=== PATIENT | female | born 1950 | race Caucasian/White ===

== ENCOUNTER → 2016-12-21 | Outpatient (CLI) | payer MEDICARE, BC ==
--- NOTE | 2016-12-21 10:01 | MM ---
Reason for exam: follow-up at short interval from prior study. Last mammogram was performed 6 months ago. History: Patient is postmenopausal and has history of breast cancer at age 59. Lumpectomy of the left breast. Chemotherapy. Radiation therapy of the left breast. Physical Findings: Nurse Summary: 1cm nodule in the left breast at 5 o'clock (nurse kp). MG 3D Diag Mammo W/Cad LT CC and MLO view(s) were taken of the left breast. Prior study comparison: June 29, 2016, bilateral MG 3d diag mammo w/cad [facility]. June 28, 2015, bilateral MG 3d diag mammo w/cad [facility]. The breast tissue is heterogeneously dense. This may lower the sensitivity of mammography. Developing asymmetry in the left lower inner quadrant. This finding is changed when compared with previous exams. These results were verbally communicated with the patient and result sheet given to the patient on 12/21/16. ASSESSMENT: Probably benign, BI-RAD 3 RECOMMENDATION: Follow-up diagnostic mammogram of both breasts in 6 months. Manage patient on a clinical basis. Back on schedule.
--- NOTE | 2016-12-21 10:03 | USB ---
Reason for exam: additional evaluation requested from abnormal screening. History: Patient is postmenopausal and has history of breast cancer at age 59. Lumpectomy of the left breast. Chemotherapy. Radiation therapy of the left breast. US Breast Limited BILAT Right breast ultrasound demonstrates a .3 x 0.4 x 0.1cm oval, lesion too small to characterize at 3:30 BB. Left breast ultrasound includes all four quadrants, the retroareolar region and axilla. Finding demonstrates no cystic or solid lesion seen. These results were verbally communicated with the patient and result sheet given to the patient on 12/21/16. ASSESSMENT: Benign, BI-RAD 2 RECOMMENDATION: Follow-up diagnostic mammogram of both breasts in 6 months. Manage patient on a clinical basis. Back on schedule.
== END | disposition home or self-care (01) ==
LOC: RADMAMWWP 08:02
PROVIDERS: ATTEND Family Medicine
DX: N63 Unspecified lump in breast (principal); Z85.3 Personal history of malignant neoplasm of breast
CPT/HCPCS: 76642; G0206; G0279

== ENCOUNTER → 2017-06-25 | Outpatient (CLI) | payer MEDICARE, BC ==
--- NOTE | 2017-06-25 10:03 | MM ---
Reason for exam: follow-up at short interval from prior study. Last mammogram was performed 6 months ago. History: Patient is postmenopausal and has history of breast cancer at age 59. Lumpectomy of the left breast. Chemotherapy. Radiation therapy of the left breast. Physical Findings: Nurse did not find any significant physical abnormalities on exam. MG 3D Diag Mammo W/Cad [facility] Bilateral CC and MLO view(s) were taken. Prior study comparison: December 21, 2016, left breast MG 3d diag mammo w/cad LT. June 29, 2016, bilateral MG 3d diag mammo w/cad [facility]. The breast tissue is heterogeneously dense. This may lower the sensitivity of mammography. Post lumpectomy change in the upper outer left quadrant. Previously seen focal asymmetry appears similar to exams back to 2014. These results were verbally communicated with the patient and result sheet given to the patient on 06/25/17. ASSESSMENT: Benign, BI-RAD 2 RECOMMENDATION: Routine screening mammogram of both breasts in 1 year.
== END | disposition home or self-care (01) ==
LOC: RADMAMWWP 08:39
PROVIDERS: ATTEND Family Medicine
DX: C50.912 Malignant neoplasm of unspecified site of left female breast (principal)
CPT/HCPCS: G0204; G0279

== ENCOUNTER → 2018-06-26 | Outpatient (CLI) | payer MEDICARE, BC ==
--- NOTE | 2018-06-26 11:10 | MM ---
Reason for exam: additional evaluation requested from prior study. Last mammogram was performed 1 year ago. History: Patient is postmenopausal and has history of breast cancer at age 59. Lumpectomy of the left breast. Chemotherapy. Radiation therapy of the left breast. Physical Findings: Nurse did not find any significant physical abnormalities on exam. MG 3D Diag Mammo W/Cad [facility] Bilateral CC and MLO view(s) were taken. Prior study comparison: June 25, 2017, bilateral MG 3d diag mammo w/cad [facility]. June 29, 2016, bilateral MG 3d diag mammo w/cad [facility]. June 28, 2015, bilateral MG 3d diag mammo w/cad [facility]. The breast tissue is heterogeneously dense. This may lower the sensitivity of mammography. No significant new findings when compared with previous films. These results were verbally communicated with the patient and result sheet given to the patient on 06/26/18. ASSESSMENT: Benign, BI-RAD 2 RECOMMENDATION: Follow-up diagnostic mammogram of both breasts in 1 year.
== END | disposition home or self-care (01) ==
LOC: RADMAMWWP 10:10
PROVIDERS: ATTEND Family Medicine
DX: Z08 Encounter for follow-up examination after completed treatment for malignant neoplasm (principal); Z85.3 Personal history of malignant neoplasm of breast
CPT/HCPCS: 77066; G0279; 77062

== ENCOUNTER → 2019-06-27 | Outpatient (CLI) | payer MEDICARE, BC ==
--- NOTE | 2019-06-27 11:30 | MM ---
Reason for exam: additional evaluation requested from prior study. Last mammogram was performed 1 year ago. History: Patient is postmenopausal and has history of breast cancer at age 59. Lumpectomy of the left breast. Chemotherapy. Radiation therapy of the left breast. Physical Findings: Nurse did not find any significant physical abnormalities on exam. MG 3D Diag Mammo W/Cad [facility] Bilateral CC, MLO, and XCCL view(s) were taken. Prior study comparison: June 26, 2018, bilateral MG 3d diag mammo w/cad [facility]. June 25, 2017, bilateral MG 3d diag mammo w/cad [facility]. The breast tissue is heterogeneously dense. This may lower the sensitivity of mammography. Finding #1: Architectural distortion in the upper outer quadrant, posterior position of the left breast. Finding #2: There are typically benign dystrophic, round calcifications in both breasts. There is no discrete abnormality. These results were verbally communicated with the patient and result sheet given to the patient on 06/27/19. ASSESSMENT: Benign, BI-RAD 2 RECOMMENDATION: Follow-up diagnostic mammogram of both breasts in 1 year.
== END | disposition home or self-care (01) ==
LOC: RADMAMWWP 09:25
PROVIDERS: ATTEND Physician Assistant Medical
DX: Z08 Encounter for follow-up examination after completed treatment for malignant neoplasm (principal); Z85.3 Personal history of malignant neoplasm of breast
CPT/HCPCS: 77066; G0279; 77062

== ENCOUNTER → 2020-02-24 | Outpatient (CLI) | payer MEDICARE, BC ==
[2020-02-24 17:58] LABS: Non-African American GFR(CKD) 74.2 (60.0-200.0)
== END | disposition home or self-care (01) ==
LOC: LABWHC1 10:30
PROVIDERS: ATTEND Podiatrist Foot & Ankle Surgery
DX: R94.4 Abnormal results of kidney function studies (principal)
CPT/HCPCS: 36415; 82565; 84520

== ENCOUNTER → 2020-03-12 | Outpatient (CLI) | payer MEDICARE, BC ==
--- NOTE | 2020-03-12 20:41 | MR ---
MRI left ankle without contrast and with contrast HISTORY: Mass left anterior medial ankle Multiplanar multisequence and postcontrast images obtained to the left ankle following 7.5 cc Gadavis t IV No comparisons At the site of the overlying marker at the clinical abnormality level, there is an underlying vessel present likely corresponding to the saphenous vein. Some local fat prominence is present. There is no evident mass at this level. Some minimal increased T2 signal suggests some local edema. There is no fracture or dislocation. The surrounding signal is consistent with subcutaneous fat. The peroneal longus and brevis tendons, flexor and extensor tendons are intact. The Achilles tendon a nd plantar aponeurosis are intact. Tibiotalar joint is unremarkable. Bone marrow signal is maintained . Articular cartilage signal is normal. No evident ligamentous disruption. 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
== END | disposition home or self-care (01) ==
LOC: RADMRIMAIN 14:40
PROVIDERS: ATTEND Podiatrist Foot & Ankle Surgery
DX: R22.42 Localized swelling, mass and lump, left lower limb (principal)
CPT/HCPCS: 73723; A9585

== ENCOUNTER → 2020-06-28 | Outpatient (CLI) | payer MEDICARE, BC ==
--- NOTE | 2020-06-29 11:42 | MM ---
Reason for exam: additional evaluation requested from prior study. Last mammogram was performed 1 year ago. History: Patient is postmenopausal and has history of breast cancer at age 59. Lumpectomy of the left breast. Chemotherapy. Radiation therapy of the left breast. Physical Findings: Nurse did not find any significant physical abnormalities on exam. MG 3D Diag Mammo W/Cad [facility] Bilateral CC and MLO view(s) were taken. Prior study comparison: June 27, 2019, bilateral MG 3d diag mammo w/cad [facility]. June 26, 2018, bilateral MG 3d diag mammo w/cad [facility]. The breast tissue is heterogeneously dense. This may lower the sensitivity of mammography. Post surgical and post therapy change left breast. Areas of nodular asymmetry on the right CC, the medial area disperses. Central posterior asymmetric density left CC view disperses. Minimal regional density on the lateral view appears similar to 2016. Precautionary 6 month follow up recommended. These results were verbally communicated with the patient and result sheet given to the patient on 06/28/20. ASSESSMENT: Probably benign, BI-RAD 3 RECOMMENDATION: Follow-up diagnostic mammogram of the right breast in 6 months.
== END | disposition home or self-care (01) ==
LOC: RADMAMWWP 10:11
PROVIDERS: ATTEND Family Medicine
DX: Z08 Encounter for follow-up examination after completed treatment for malignant neoplasm (principal); Z85.3 Personal history of malignant neoplasm of breast
CPT/HCPCS: 77066; G0279; 77062

== ENCOUNTER → 2020-12-28 | Outpatient (CLI) | payer MEDICARE, BC ==
--- NOTE | 2020-12-28 11:47 | MM ---
Reason for exam: follow-up at short interval from prior study. Last mammogram was performed 6 months ago. History: Patient is postmenopausal and has history of breast cancer at age 59. Lumpectomy of the left breast. Chemotherapy. Radiation therapy of the left breast. Physical Findings: Nurse did not find any significant physical abnormalities on exam. MG 3D Diag Mammo W/Cad RT Spot compression CC, spot compression MLO, and LM view(s) were taken of the right breast. Prior study comparison: June 28, 2020, bilateral MG 3d diag mammo w/cad [facility]. June 27, 2019, bilateral MG 3d diag mammo w/cad [facility]. The breast tissue is heterogeneously dense. This may lower the sensitivity of mammography. Finding: There is a 13 mm obscured oval mass in the right breast. There is no new discrete abnormality that persists on today's study. These results were verbally communicated with the patient and result sheet given to the patient on 12/28/20. ASSESSMENT: Benign, BI-RAD 2 RECOMMENDATION: Follow-up diagnostic mammogram of both breasts in 6 months. Back on schedule.
== END | disposition home or self-care (01) ==
LOC: RADMAMWWP 10:46
PROVIDERS: ATTEND Family Medicine
DX: Z12.31 Encounter for screening mammogram for malignant neoplasm of breast (principal); Z85.3 Personal history of malignant neoplasm of breast; Z78.0 Asymptomatic menopausal state
CPT/HCPCS: 77065; G0279; 77061

== ENCOUNTER → 2021-03-21 | Outpatient (CLI) | payer MEDICARE, BC ==
--- NOTE | 2021-03-21 11:59 | XR ---
EXAMINATION TYPE: XR Hip Complete LT DATE OF EXAM: 03/21/2021 COMPARISON: none HISTORY: Pain TECHNIQUE: 2 view left hip FINDINGS: Joint space is preserved. No acute fracture or dislocation. IMPRESSION: 1. Normal left hip
--- NOTE | 2021-03-21 14:57 | XR ---
EXAMINATION TYPE: XR lumbar spine 2 or 3V DATE OF EXAM: 03/21/2021 COMPARISON: None HISTORY: Low back pain TECHNIQUE: 3 view lumbar spine FINDINGS: There are 5 lumbar-type vertebral bodies. Pedicles are intact. Mild disc space narrowing is present posteriorly at L4-5 and L5-S1. There is a grade 1 retrolisthesis of L3 posteriorly on L4. IMPRESSION: 1. Mild degenerative disc changes lower lumbar spine. 2. There is a minimal grade 1 retrolisthesis of L3 on L4
== END | disposition home or self-care (01) ==
LOC: RADXRMAIN 11:21
PROVIDERS: ATTEND Physician Assistant Medical
DX: M25.552 Pain in left hip (principal); M51.36 Other intervertebral disc degeneration, lumbar region; M43.16 Spondylolisthesis, lumbar region
CPT/HCPCS: 72100; 73502

== ENCOUNTER → 2021-06-30 | Outpatient (CLI) | payer MEDICARE, BC ==
--- NOTE | 2021-06-30 12:48 | MM ---
Reason for exam: additional evaluation requested from prior study. Last mammogram was performed 6 months ago. History: Patient is postmenopausal and has history of breast cancer at age 59. Lumpectomy of the left breast. Chemotherapy. Radiation therapy of the left breast. Physical Findings: Nurse did not find any significant physical abnormalities on exam. MG 3D Diag Mammo W/Cad [facility] Bilateral CC and MLO view(s) were taken. Prior study comparison: December 28, 2020, right breast MG 3d diag mammo w/cad RT. June 28, 2020, bilateral MG 3d diag mammo w/cad [facility]. The breast tissue is heterogeneously dense. This may lower the sensitivity of mammography. Stable benign calcifications. Stable post operative change left breast. No significant new findings when compared with previous films. These results were verbally communicated with the patient and result sheet given to the patient on 06/30/21. ASSESSMENT: Benign, BI-RAD 2 RECOMMENDATION: Follow-up diagnostic mammogram of both breasts in 1 year.
== END | disposition home or self-care (01) ==
LOC: RADMAMWWP 08:45
PROVIDERS: ATTEND Family Medicine
DX: R92.1 Mammographic calcification found on diagnostic imaging of breast (principal); Z85.3 Personal history of malignant neoplasm of breast; Z78.0 Asymptomatic menopausal state
CPT/HCPCS: 77066; G0279; 77062

== ENCOUNTER → 2022-03-10 | Outpatient (CLI) | payer MEDICARE, BC | END | disposition home or self-care (01) | LOC: LABWHC1 07:46 | PROVIDERS: ATTEND Orthopaedic Surgery Orthopaedic Surgery of the Spine | DX: Z01.812 Encounter for preprocedural laboratory examination (principal) | CPT/HCPCS: 87070 ==

== ENCOUNTER → 2022-07-03 | Outpatient (CLI) | payer MEDICARE, BC ==
--- NOTE | 2022-07-03 09:34 | MM ---
Reason for Exam: Follow-up at short interval from prior study. Last screening mammogram was performed 12 month(s) ago. Patient History: Menarche at age 11. First Full-Term at age 20. Postmenopausal. Breast cancer, age 59. Lumpectomy on the Left side. Radiation Therapy, left. Chemotherapy. Tissue Density: The breast tissue is heterogeneously dense. This may lower the sensitivity of mammography. Findings: Analyzed By CAD. Oval asymmetric density lateral right CC view in the middle depth appears slightly more pronounced compared to prior exams but becomes less defined on the spot 3-D view, overall similar in appearance to prior studies. The rolled view suggests that it is located in the upper outer quadrant. Six-month follow-up exam to reassess. Unchanged postsurgical and posttreatment changes within left breast. Overall Assessment: Probably benign, BI-RAD 3 Management: Diagnostic Mammogram of the right breast in 6 months. To reassess the lateral asymmetric density which improves on special views. Patient should continue monthly self breast exams. Results were given to the patient verbally at the time of exam. Electronically signed and approved by: Gretchen Roa M.D. Radiologist
== END | disposition home or self-care (01) ==
LOC: RADMAMWWP 08:35
PROVIDERS: ATTEND Family Medicine
DX: Z85.3 Personal history of malignant neoplasm of breast (principal); Z78.0 Asymptomatic menopausal state
CPT/HCPCS: 77066; G0279; 77062

== ENCOUNTER → 2023-01-01 | Outpatient (CLI) | payer MEDICARE, BC ==
--- NOTE | 2023-01-01 10:12 | MM ---
Reason for Exam: Follow-up at short interval from prior study. Last screening mammogram was performed 7 month(s) ago. Patient History: Menarche at age 11. First Full-Term at age 20. Postmenopausal. Breast cancer, left, age 59. Lumpectomy on the Left side. Radiation Therapy, left. Chemotherapy. Prior Study Comparison: 12/28/2020 Right Diagnostic Mammogram, [facility]. 06/30/2021 Bilateral Diagnostic Mammogram, [facility]. 07/03/2022 Bilateral MG 3D diag mammo w/cad [facility], [facility]. Tissue Density: Right: The breast tissue is heterogeneously dense. This may lower the sensitivity of mammography. Findings: Analyzed By CAD. There are scattered small benign-appearing round calcifications bilaterally redemonstrated. Focal asymmetric prominent soft tissue middle depth outer aspect right breast is less prominent versus the most recent mammogram. Benign-appearing right axillary lymph nodes are redemonstrated. No suspicious new or enlarging mass or new group of microcalcification in either breast. Overall Assessment: Benign, BI-RAD 2 Management: Screening Mammogram of both breasts in 1 year. . Results were given to the patient verbally at the time of exam. Patient should continue monthly self-breast exams. A clinical breast exam by your physician is recommended on an annual basis. This exam should not preclude additional follow-up of suspicious palpable abnormalities. Note on Gisselle scores and lifetime risk: 1. A Gisselle score greater than 3% is considered moderate risk. If this is the case, consider specialist referral to assess eligibility for a risk reducing agent. 2. If overall lifetime risk for the development of breast cancer is 20% or higher, the patient may qualify for future screening with alternating mammogram and breast MRI. Electronically signed and approved by: Teo Valdivia M.D.
--- NOTE | 2023-01-01 11:36 | BD ---
EXAMINATION TYPE: Axial Bone Density DATE OF EXAM: 01/01/2023 CLINICAL HISTORY: 72 years old Female. ICD-10 CODE: M85.89 DISORDER OF BONE DENSITY Height: 62 Weight: 150.0 FRAX RISK QUESTIONS: Alcohol (3 or more units per day): no Family History (Parent hip fracture): no Glucocorticoids (More than 3mos): no History of Fracture in Adulthood: no Secondary Osteoporosis: 1. Type 1 Diabetes: no 2. Hyperthyroidism: no 3. Menopause before 45: no 4. Malnutrition: no 5. Chronic liver disease: no Rheumatoid Arthritis: no Current Tobacco Use: no RISK FACTORS HISTORY OF: Hip Fracture (Right/Left): no Spine Fracture: no History of Wrist Fracture: no Surgery to Spine/Hip(right/left)/Wrist (right/left): Fusion C5-6-7 When: 2021 Family History of Osteoporosis: Mother Active: yes Diet low in dairy products/other sources of calcium: yes Postmenopausal woman: yes Take estrogen and/or progesterone medications: no Lost more than 2 inches in height since high school: yes Frequent falls: no Poor Health: no Hyperparathyroidism: no Adrenal Insufficiency: no MEDICATIONS: Prednisone or other steroids: no Thyroid Medications: Levothyroxine Osteoporosis Medications: no Additional Medications: Labetalol, Diovan, fish oil, Lexapro, Calcium, Vit D, Multi Vit, Pravastatin, Levothyroxine, Additional History: Breast Cancer 2008 lumpectomy with chemo and radiation EXAM MEASUREMENTS: Bone mineral densitometry was performed using the [employer] System. Bone mineral density as measured about the Lumbar spine is: ----- L1-L4(G/cm2): 1.096 T Score Values are as follows: ----- L1: -0.1 ----- L2: -1.0 ----- L3: -0.8 ----- L4: -1.0 ----- L1-L4: -0.7 Z Score Values are as follows: ----- L1: 1.6 ----- L2: 0.7 ----- L3: 0.8 ----- L4: 0.6 ----- L1-L4: 0.9 Baseline Study Bone mineral density about the R hip (g/cm2): 0.983 Bone mineral density about the L hip (g/cm2): 0.927 T Score values are as follows: -----R Neck: -1.0 -----L Neck: -1.5 -----R Total: -0.2 -----L Total: -0.6 Z Score values are as follows: -----R Neck: 0.9 -----L Neck: 0.4 -----R Total: 1.4 -----L Total: 1.0 Baseline Study FRAX%s: The graph provided illustrates a 11.0% chance for a major osteoporotic fx and a 2.1% chance f or the hips probability for fx in 10 years time. IMPRESSION: Osteopenia (T Score between -2.5 and -1) in the left femoral neck. There is slightly increased risk of fracture and the patient may be considered for treatment. Re-Screen 2-5 years. NOTE: T-SCORE=SD OF THE YOUNG ADULT MEAN.
== END | disposition home or self-care (01) ==
LOC: RADMAMWWP 09:27
PROVIDERS: ATTEND Family Medicine
DX: R92.8 Other abnormal and inconclusive findings on diagnostic imaging of breast (principal); M85.89 Other specified disorders of bone density and structure, multiple sites
CPT/HCPCS: 77080; 77065; G0279; 77061

== ENCOUNTER → 2023-07-23 | Outpatient (CLI) | payer BC, MEDICARE ==
--- NOTE | 2023-07-23 08:21 | MM ---
Reason for Exam: Additional evaluation requested from prior study. Last mammogram was performed 1 year(s) and 1 month(s) ago. Patient History: Menarche at age 11. First Full-Term at age 20. Postmenopausal. Breast cancer, left, age 59. Lumpectomy on the Left side. Radiation Therapy, left. Chemotherapy. Prior Study Comparison: 12/21/2016 Bilateral Diagnostic Ultrasound, [facility]. 06/25/2017 Bilateral Diagnostic Mammogram, [facility]. 06/27/2019 Bilateral Diagnostic Mammogram, [facility]. 06/28/2020 Bilateral Diagnostic Mammogram, [facility]. 12/28/2020 Right Diagnostic Mammogram, [facility]. 06/30/2021 Bilateral Diagnostic Mammogram, [facility]. 07/03/2022 Bilateral MG 3D diag mammo w/cad [facility], [facility]. 01/01/2023 Right MG 3D diag mammo w/cad RT, [facility]. Tissue Density: The breast tissue is heterogeneously dense. This may lower the sensitivity of mammography. Findings: Analyzed By CAD. Stable postoperative changes of lumpectomy left breast. Benign calcifications bilaterally. No evidence for mass. Overall Assessment: Benign, BI-RAD 2 Management: Diagnostic Mammogram of both breasts in 1 year. . Results were given to the patient verbally at the time of exam. Patient should continue monthly self-breast exams. A clinical breast exam by your physician is recommended on an annual basis. This exam should not preclude additional follow-up of suspicious palpable abnormalities. Note on Gisselle scores and lifetime risk: 1. A Gisselle score greater than 3% is considered moderate risk. If this is the case, consider specialist referral to assess eligibility for a risk reducing agent. 2. If overall lifetime risk for the development of breast cancer is 20% or higher, the patient may qualify for future screening with alternating mammogram and breast MRI. Electronically signed and approved by: Isidoro Curtis M.D. Radiologis
== END | disposition home or self-care (01) ==
LOC: RADMAMWWP 07:30
PROVIDERS: ATTEND Family Medicine
DX: R92.333 Mammographic heterogeneous density, bilateral breasts (principal); Z78.0 Asymptomatic menopausal state; Z85.3 Personal history of malignant neoplasm of breast
CPT/HCPCS: 77066; G0279; 77062

== ENCOUNTER → 2024-07-24 | Outpatient (CLI) | payer MEDICARE ==
--- NOTE | 2024-07-24 10:13 | MM ---
Reason for Exam: Hx of breast cancer, conservation therapy. Last screening mammogram was performed 12 month(s) ago. Patient History: Menarche at age 11. First Full-Term at age 20. Postmenopausal. Breast cancer, left, age 59. Previous chest radiation therapy at age 59. Previous chemotherapy at age 59. Lumpectomy on the Left side. Radiation Therapy, left. Chemotherapy. Prior Study Comparison: 06/28/2020 Bilateral Diagnostic Mammogram, [facility]. 12/28/2020 Right Diagnostic Mammogram, [facility]. 07/03/2022 Bilateral MG 3D diag mammo w/cad [facility], [facility]. 01/01/2023 Right MG 3D diag mammo w/cad RT, [facility]. 07/23/2023 Bilateral MG 3D diag mammo w/cad [facility], [facility]. Tissue Density: The breasts are heterogeneously dense, which may obscure small masses. Findings: Analyzed By CAD. Postoperative distortion upper outer left breast is stable. Scattered punctate calcifications remain unchanged. No mass or distortion right breast. Overall Assessment: Benign, BI-RAD 2 Management: Screening Mammogram of both breasts in 1 year. . Results were given to the patient verbally at the time of exam. Patient should continue monthly self-breast exams. A clinical breast exam by your physician is recommended on an annual basis. This exam should not preclude additional follow-up of suspicious palpable abnormalities. Note on Gisselle scores and lifetime risk: 1. A Gisselle score greater than 3% is considered moderate risk. If this is the case, consider specialist referral to assess eligibility for a risk reducing agent. 2. If overall lifetime risk for the development of breast cancer is 20% or higher, the patient may qualify for future screening with alternating mammogram and breast MRI. [facility], , 07/24/2024 10:10 AM. Electronically signed and approved by: Isidoro Curtis M.D. Radiologis
== END | disposition home or self-care (01) ==
LOC: RADMAMWWP 09:20
PROVIDERS: ATTEND Family Medicine
DX: R92.8 Other abnormal and inconclusive findings on diagnostic imaging of breast (principal); R92.333 Mammographic heterogeneous density, bilateral breasts; Z78.0 Asymptomatic menopausal state; Z85.3 Personal history of malignant neoplasm of breast
CPT/HCPCS: 77066; G0279; 77062